=== PATIENT | male | born 1945 ===

== ENCOUNTER 2019-04-18 09:29 | Day surgery (SDC) | payer MEDICARE ==
[2019-04-17 17:50] VITALS: BMI 35.9
[2019-04-18] MEDS ORDERED: Neomycin-Polymyxin 1 ML AMP ONE (10:03)
[2019-04-18 10:06] LABS: Hemoglobin 12.8 g/dL (14.0-18.0); Mean Corpuscular HGB CONC 33.5 g/dL (32.0-36.0); Mean Corpuscular Hemoglobin 31.4 pg (27.0-31.0); Mean Corpuscular Volume 93.7 fL (78.0-98.0); Mean Platelet Volume 7.1 fL (7.4-10.4); Platelet Count 331 thou/uL (130-400); RBC Distribution Width 12.2 % (11.5-14.5); Red Blood Cell (RBC) Count 4.08 mill/uL (4.70-6.10); White Blood Cell (WBC) Count 8.5 thou/uL (4.8-10.8)
[2019-04-18 10:13] LABS: INR-International Normal Ratio 1.8; Prothrombin Time 20.8 SEC (12.0-14.7)
[2019-04-18] MEDS ORDERED: PROPOFOL 200 MG/20 ML VIAL ONE (10:17)
[2019-04-18] MEDS ORDERED: Dexamethasone 20 MG/5 ML VIAL ONE (10:17)
[2019-04-18] MEDS ORDERED: Ondansetron PF 4 MG/2 ML Vial ONE (10:17)
[2019-04-18] MEDS ORDERED: Lidocaine 1% PF 5 ML VIAL ONE (10:17)
[2019-04-18 10:29] LABS: Anion Gap 11 mmol/L (10-20); BUN (Urea Nitrogen) 19 mg/dL (8.4-25.7); Calc. Creatinine Clearance 87 mL/min (70-130); Calcium 9.1 mg/dL (7.8-10.44); Carbon Dioxide 25 mmol/L (23-31); Chloride 103 mmol/L (98-107); Estimated GFR-MDRD 58; Glucose 106 mg/dL (83-110); Potassium 4.4 mmol/L (3.5-5.1); Sodium 135 mmol/L (136-145)
[2019-04-18] MEDS ORDERED: Fentanyl 100 MCG/2 ML VIAL ONE (11:03)
[2019-04-18] MEDS ORDERED: Bupivacaine 0.25% HCL 30 ML VIAL ONE (11:38)
--- NOTE | 2019-04-18 18:53 | OP ---
DATE OF PROCEDURE: 04/18/2019 PREOPERATIVE DIAGNOSIS: Dehiscence of surgical wound on the palmar aspect of the left index finger into the palm. POSTOPERATIVE DIAGNOSIS: Dehiscence of surgical wound on the palmar aspect of the left index finger into the palm. PROCEDURE PERFORMED: Irrigation and debridement of the left index finger and into the with closure of the wound. ANESTHESIA: General. DESCRIPTION OF PROCEDURE: The patient was given preoperative IV antibiotics, taken to the operating room, placed in the supine position. Satisfactory general anesthesia was performed. The left hand and forearm were sterilely prepped and draped in usual fashion. After exsanguination, tourniquet in proximal left forearm was raised to 250 mmHg. Hematoma was evacuated from around the flexor tendon in the index finger and into the palm of the hand. The wound was then copiously irrigated using antibiotic solution using the high-speed mop maker, Pulsavac and again the flexor tendon was noted to be completely intact and free of any scar tissue. The necrotic superficial skin was removed, and the underlying skin was in good condition. The wounds were then closed using 3-0 Rapide in interrupted simple sutures. The skin came back approximated very well without excessive stress. A 20 mL of 0.25% Marcaine plain was then used around the incision and over the median nerve to provide postoperative analgesia. Sterile dressing was applied with the MP, PIP, and DIP joints in slight flexion. The tourniquet was then released. The patient was awakened, extubated, and transferred to recovery room in stable condition. ESTIMATED BLOOD LOSS: None. COMPLICATIONS: None. TOURNIQUET TIME: 27 minutes. Job ID: [id number]
== END 2019-04-18 14:03 | disposition home or self-care (01) ==
LOC: SDC 09:29
PROVIDERS: ATTEND Orthopaedic Surgery
PROC: 0JBK0ZZ Excision of Left Hand Subcutaneous Tissue and Fascia, Open Approach (ICD-10-PCS; principal; 2019-04-18)
DX: T81.31XA Disruption of external operation (surgical) wound, not elsewhere classified, initial encounter (principal); I10 Essential (primary) hypertension; I48.91 Unspecified atrial fibrillation; G40.909 Epilepsy, unspecified, not intractable, without status epilepticus; F17.200 Nicotine dependence, unspecified, uncomplicated; E66.9 Obesity, unspecified; Z68.35 Body mass index [BMI] 35.0-35.9, adult; Z79.01 Long term (current) use of anticoagulants; Z79.82 Long term (current) use of aspirin; Z79.899 Other long term (current) drug therapy; Z88.6 Allergy status to analgesic agent; Z91.013 Allergy to seafood; Z95.1 Presence of aortocoronary bypass graft
CPT/HCPCS: 36415; 80048; 85027; 85610; 85730; 93005; 93010; J1100; J2001; J2405; J2704; J3010; S0020